=== PATIENT | male | born 1990 | race American Indian/Alaskan Native ===

== ENCOUNTER 2021-01-15 23:46 | Emergency (ER) | payer SELFPAY ==
[2021-01-16 00:07] VITALS: BP 123/77
[2021-01-16] MEDS ORDERED: FAMOTIDINE 20 MG TAB PO ONE (00:12)
[2021-01-16] MEDS ORDERED: predniSONE 20 MG TAB PO ONE (00:15)
--- NOTE | 2021-01-16 00:20 | Emergency Department Report ---
ED General Adult HPI - General Chief complaint: Allergic Reaction Stated complaint: ALLERGIC REACTION/HIVES Time Seen by Provider: 01/16/21 00:12 Source: patient Mode of arrival: Ambulatory Limitations: No Limitations - History of Present Illness Initial comments: 30-year-old -[place] male patient presents with complaints of diffuse itchy rash x2 days. Patient states the rash spares his palms and soles or his face. He denies any changes in his products, new foods, or known allergies. Patient states Benadryl is not helping. He denies any past medical history. Patient also denies any cough, shortness of breath, dysphagia, or swelling. - Related Data Previous Rx's Medication Instructions Recorded Last Taken Type Cetirizine HCl 10 mg PO BID PRN #10 tablet 01/16/21 Unknown Rx Famotidine [Pepcid] 20 mg PO BID #20 tablet 01/16/21 Unknown Rx Triamcinolone Acetonide 60 ml TP TID PRN 7 Days #1 tube 01/16/21 Unknown Rx [Triamcinolone 0.1% LOTION] methylPREDNISolone [Medrol 4MG 4 mg PO TID #1 tab.ds.pk 01/16/21 Unknown Rx DOSEPAK (21 tabs)] Allergies Allergy/AdvReac Type Severity Reaction Status Date / Time No Known Allergies Allergy Verified 01/16/21 00:27 ED Review of Systems ROS: Stated complaint: ALLERGIC REACTION/HIVES Other details as noted in HPI Constitutional: denies: chills, diaphoresis, fever, malaise Respiratory: denies: cough, shortness of breath Cardiovascular: denies: chest pain Gastrointestinal: denies: abdominal pain Musculoskeletal: denies: joint swelling, arthralgia Skin: rash Neurological: denies: headache, numbness, paresthesias Hematological/Lymphatic: denies: swollen glands ED Past Medical Hx - Past Medical History Previous Medical History?: Yes Hx Asthma: Yes - Surgical History Past Surgical History?: Yes Additional Surgical History: Hand - Social History Smoking Status: Current Every Day Smoker Substance Use Type: Marijuana - Medications Home Medications: Home Medications Medication Instructions Recorded Confirmed Last Taken Type Cetirizine HCl 10 mg PO BID PRN #10 tablet 01/16/21 Unknown Rx Famotidine [Pepcid] 20 mg PO BID #20 tablet 01/16/21 Unknown Rx Triamcinolone Acetonide 60 ml TP TID PRN 7 Days #1 tube 01/16/21 Unknown Rx [Triamcinolone 0.1% LOTION] methylPREDNISolone [Medrol 4MG 4 mg PO TID #1 tab.ds.pk 01/16/21 Unknown Rx DOSEPAK (21 tabs)] ED Physical Exam - General Limitations: No Limitations General appearance: alert, in no apparent distress - Head Head exam: Present: atraumatic, normocephalic - Eye Eye exam: Present: normal appearance. Absent: scleral icterus - Neck Neck exam: Present: normal inspection - Respiratory Respiratory exam: Present: normal lung sounds bilaterally. Absent: respiratory distress - Cardiovascular Cardiovascular Exam: Present: regular rate, normal rhythm - Back Exam Back exam: Present: normal inspection - Neurological Exam Neurological exam: Present: alert, oriented X3 - Psychiatric Psychiatric exam: Present: normal affect, normal mood - Skin Skin exam: Present: warm, dry, intact, normal color, rash (Diffuse rash noted to bilateral upper and lower extremities, torso, and neck sparing the palms soles and face; rash is papular with a 3 cm rash noted to the front of the abdomen where patient states symptoms started) ED Course Vital Signs 01/16/21 01/16/21 00:05 00:51 Temperature 98.2 F Pulse Rate 80 Respiratory 18 16 Rate Blood Pressure 123/77 O2 Sat by Pulse 100 99 Oximetry ED Medical Decision Making - Medical Decision Making Rash appears to be consistent with pityriasis rosea. Will treat symptomatically. Patient to follow-up with primary care in 3 to 5 days. Discussed signs and symptoms that should prompt immediate return to the emergency department in detail with patient who verbalizes understanding. Critical care attestation.: If time is entered above; I have spent that time in minutes in the direct care of this critically ill patient, excluding procedure time. ED Disposition Clinical Impression: Hives, Pityriasis rosea-like skin eruption Disposition: DC-01 TO HOME OR SELFCARE Is pt being admited?: No Condition: Stable Instructions: Hives, Pityriasis Rosea Prescriptions: Cetirizine HCl 10 mg PO BID PRN #10 tablet PRN Reason: hives methylPREDNISolone [Medrol 4MG DOSEPAK (21 tabs)] 4 mg PO TID #1 tab.ds.pk Famotidine [Pepcid] 20 mg PO BID #20 tablet Triamcinolone Acetonide [Triamcinolone 0.1% LOTION] 60 ml TP TID PRN 7 Days #1 tube PRN Reason: Itching Referrals: [facility] [Provider Group] - 3-5 Days Forms: Work/School Release Form(ED)
== END 2021-01-16 00:55 | disposition home or self-care (01) ==
LOC: ED 23:46
DX: L50.9 Urticaria, unspecified (principal); R21 Rash and other nonspecific skin eruption; J45.909 Unspecified asthma, uncomplicated; F17.200 Nicotine dependence, unspecified, uncomplicated; F12.90 Cannabis use, unspecified, uncomplicated; Z79.899 Other long term (current) drug therapy; Z98.890 Other specified postprocedural states
CPT/HCPCS: 99282; J7512